=== PATIENT | female | born 1970 | race African-American/Black ===

== ENCOUNTER 2020-01-18 05:40 | Emergency (ER) | payer OTHER ==
[~2020-01-18] VITALS: Ht 167.6 cm; Wt 82.3 kg
[2020-01-18] MEDS ORDERED: IV NORMAL SALINE 1000ML BAG 1,000 ML IV ONE (06:30)
[2020-01-18] MEDS ORDERED: ACETAMINOPHEN 500 MG TABLET PO ONE (06:45)
[2020-01-18 07:00] LABS: CALCIUM 8.9 mg/dL (8.5-10.1); GFR 71.3; POTASSIUM 3.7 mmol/L (3.5-5.1)
[2020-01-18 07:04] LABS: BASO # 0.1 x10^3/uL (0.0-0.2); BASO % 1 % (0-3); EOS # 0.2 x10^3/uL (0.0-0.7); EOS % 3 % (0-3); HEMATOCRIT 42.3 % (36.0-47.0); HEMOGLOBIN 13.9 g/dL (12.0-15.5); LYMPH # 1.7 x10^3/uL (1.0-4.8); LYMPH % 35 % (24-48); MEAN CORPUSCULAR HEMOGLOBIN 27 pg (25-35); MEAN CORPUSCULAR HGB CONC 33 g/dL (31-37); MEAN CORPUSCULAR VOLUME 83 fL (79-100); MONO # 0.4 x10^3/uL (0.0-1.1); MONO % 9 % (0-9); NEUT # 2.5 x10^3/uL (1.8-7.7); NEUT % 52 % (31-73); PLATELET COUNT 257 x10^3/uL (140-400); RED BLOOD COUNT 5.11 x10^6/uL (3.50-5.40); RED CELL DISTRIBUTION WIDTH 14.8 % (11.5-14.5); WHITE BLOOD COUNT 4.8 x10^3/uL (4.0-11.0)
[2020-01-18 07:06] LABS: ALBUMIN 3.5 g/dL (3.4-5.0); ALBUMIN/GLOBULIN RATIO 0.8 (1.0-1.7); MAGNESIUM 1.9 mg/dL (1.8-2.4); TOTAL BILIRUBIN 0.4 mg/dL (0.2-1.0); TOTAL PROTEIN 7.8 g/dL (6.4-8.2)
[2020-01-18 07:09] LABS: PREG TEST PT QUAL NEGATIVE (NEG)
--- NOTE | 2020-01-18 07:14 | PHYS DOC ---
Past Medical History Past Medical History: Anxiety, Hypertension Additional Past Medical Histor: miscarriage (HERNANDO CORTES DO) Past Surgical History: Other Additional Past Surgical Histo: myomectomy x2 (HERNANDO CORTES DO) Smoking Status: Never Smoker Alcohol Use: None Drug Use: None (HERNANDO CORTES DO) General Adult EDM: Chief Complaint: HYPERTENSION HPI: HPI: Patient is a 49 year old female presents with report of concern of elevated blood pressure which has intermittently risen over the last several years. Reports today noted blood pressure was 159/101. Patient also reports some dyspnea with exertion and palpitations which also have become worse. Patient also reports "throbbing "headache. Patient reports concerned that she may need a "stress echo ". Reports she is concerned that she might have "kidney disease". Patient does report she has a history of anxiety. Denies trauma. Denies . Reports is currently on her menstrual period. (HERNANDO CORTES DO) Review of Systems: Review of Systems: Constitutional: Denies fever or chills Eyes: Denies redness or eye pain HENT: Denies nasal congestion or sore throat Respiratory: Denies cough; reports dyspnea with exertion Cardiovascular: Denies chest pain; reports palpitations GI: Denies abdominal pain, nausea, or vomiting : Denies dysuria or hematuria Musculoskeletal: Denies back pain or joint pain Integument: Denies rash or skin lesions Neurologic: Reports headache; denies focal weakness or sensory changes Complete systems were reviewed and found to be within normal limits, except as documented in this note. (HERNANDO COTRES DO) Heart Score: HEART Score for Chest Pain: HEART Score for Chest Pain Response (Comments) Value History Slighlty/Non-Suspicious 0 ECG Normal 0 Age >45 - < 65 1 Risk Factors 1 or 2 Risk Factors 1 Troponin < Normal Limit 0 Total 2 Risk Factors: Risk Factors: DM, Current or recent (<one month) smoker, HTN, HLP, family history of CAD, obesity. Risk Scores: Score 0 - 3: 2.5% MACE over next 6 weeks - Discharge Home Score 4 - 6: 20.3% MACE over next 6 weeks - Admit for Clinical Observation Score 7 - 10: 72.7% MACE over next 6 weeks - Early Invasive Strategies (HERNANDO CORTES DO) Current Medications: Current Medications Medications (Trade) Dose Ordered Sig/Janine Start Time Stop Time Status Last Admin Dose Admin Acetaminophen (Tylenol) 500 mg 1X ONCE 01/18/20 06:45 01/18/20 06:46 DC 01/18/20 06:47 500 MG Sodium Chloride 1,000 ml @ 1,000 mls/hr 1X ONCE 01/18/20 06:30 01/18/20 07:29 01/18/20 06:47 1,000 MLS/HR (HERNANDO CORTES DO) Allergies: Allergies: Allergies Coded Allergies Type Severity Reaction Last Updated Verified quinine Allergy Intermediate hives, itching 01/18/20 Yes (HERNANDO CORTES DO) Physical Exam: PE: Constitutional: Well developed, well nourished, anxious, non-toxic appearance HENT: Normocephalic, atraumatic Eyes: PERRL, EOMI, conjunctiva normal, no discharge Neck: Normal range of motion, no tenderness, supple Lungs & Thorax: No respiratory distress, equal chest rise and fall Abdomen: Soft, no tenderness Skin: Warm, dry, no erythema, no rash Extremities: No tenderness, ROM intact, no edema Neurologic: Alert and oriented X 3, normal motor function, normal sensory function, no focal deficits noted Psychologic: Affect anxious, judgment normal (HERNANDO CORTES DO) Current Patient Data: Labs: Laboratory Tests Test 01/18/20 06:15 Sodium Level 138 mmol/L (136-145) Potassium Level 3.7 mmol/L (3.5-5.1) Chloride Level 103 mmol/L (98-107) Carbon Dioxide Level 28 mmol/L (21-32) Anion Gap 7 (6-14) Blood Urea Nitrogen 13 mg/dL (7-20) Creatinine 1.0 mg/dL (0.6-1.0) Estimated GFR (Cockcroft-Gault) 71.3 BUN/Creatinine Ratio 13 (6-20) Glucose Level 96 mg/dL (70-99) Calcium Level 8.9 mg/dL (8.5-10.1) Magnesium Level 1.9 mg/dL (1.8-2.4) Total Bilirubin 0.4 mg/dL (0.2-1.0) Aspartate Amino Transferase (AST) 17 U/L (15-37) Alanine Aminotransferase (ALT) 20 U/L (14-59) Alkaline Phosphatase 40 U/L (46-116) L Troponin I Quantitative < 0.017 ng/mL (0.000-0.055) Total Protein 7.8 g/dL (6.4-8.2) Albumin 3.5 g/dL (3.4-5.0) Albumin/Globulin Ratio 0.8 (1.0-1.7) L Serum Test, Qualitative Negative (NEG) Laboratory Tests 01/18/20 06:15 Vital Signs: Vital Signs Date Time Temp Pulse Resp B/P (MAP) Pulse Ox O2 Delivery O2 Flow Rate FiO2 01/18/20 05:50 97.6 68 158/83 (108) 97 Room Air 97.6 (HERNANDO CORTES DO) EKG: EKG: @0630 NSR at 65bpm, NO ST elevation, QRS 66ms, QT/QTc 386/406ms (HERNANDO CORTES DO) Radiology/Procedures: Radiology/Procedures: PROCEDURE: CT HEAD WO CONTRAST CT HEAD WO CONTRAST History: Reason: headache, HTN / Spl. Instructions: / History: Comparison: None. Technique: Noncontrast CT imaging was performed of the head. Exposure: One or more of the following individualized dose reduction techniques were utilized for this examination: 1. Automated exposure control 2. Adjustment of the mA and/or kV according to patient size 3. Use of iterative reconstruction technique. Findings: No intracranial hemorrhage. No mass effect. No hydrocephalus. Extra-axial spaces are unremarkable. Imaged orbits are unremarkable. Imaged paranasal sinuses and mastoid air cells are clear. No acute calvarial fracture. Impression: 1. No acute intracranial abnormality. Electronically signed by: Juan C Vuong DO (01/18/2020 7:40 AM) [id number] (HERNANDO CORTES DO) Radiology/Procedures: EXAM: CT Pulmonary Angiogram INDICATION: Reason: dyspnea with exertion, elevated d-dimer / Spl. Instructions: IV OMNI 350 100 MLS / History: TECHNIQUE: Multi-detector row images were acquired from the thoracic inlet through the upper abdomen with the use of IV contrast. Sagittal and coronal images were acquired from the transaxial data. MIP images of the pulmonary arteries were obtained. All CT scans performed at this facility utilize dose optimization techniques as appropriate to the exam, including the following: Automated exposure control and adjustment of the mA and/or KV according to patient size (this includes techniques or standardized protocols for targeted exams where dose is indication/reason for exam). IV CONTRAST: Administered COMPARISON: None FINDINGS: PULMONARY ARTERIES: Filling defect in the anterior basal segment of the right lower lobe is present, consistent with pulmonary embolus. CARDIOVASCULAR: Persistent left SVC, with drainage into the coronary sinus. Normal heart size. No pericardial effusion.. Aorta is normal caliber. MEDIASTINUM & MIKAEL: No mediastinal or hilar mass. No mediastinal adenopathy. Borderline left hilar adenopathy measuring 9 mm. LUNGS: No pulmonary infiltrate, nodule, or other focal abnormality. PLEURAL SPACE: No pleural effusions or pneumothorax. OSSEOUS & SOFT TISSUE: Bones are unremarkable. The bilateral axillary lymph nodes are mildly prominent measuring up to 10 mm in short axis. ABDOMEN: The visualized portions of the upper abdomen are unremarkable. IMPRESSION: 1. Solitary small segmental pulmonary embolus in the anterior basal segment left lower lobe. 2. Persistent left SVC with drainage into the coronary sinus (INDIGO FAGAN MD) Course & Med Decision Making: Course & Med Decision Making Pertinent Labs and Imaging studies reviewed. (See chart for details) Patient presents with concern for elevated blood pressure up to 159/101. Patient reports has been ongoing for the past 1 to 2 years. Patient reports she is not currently on any blood pressure medication. Patient does report some associated palpitations, dyspnea with exertion, and current headache. Patient neurologically intact. Patient appears very anxious. EKG stable. Labs obtained and posted to chart. Troponin WNL. D-dimer elevated. CT head without acute process. CTA chest pending. Headache addressed with Tylenol. Signout given to Dr. Burch for further evaluation and final disposition. Discussed current findings and plan with patient and family, who acknowledge understanding and agreement. (HERNANDO CORTES DO) Dragon Disclaimer: Draggilberto Disclaimer: This electronic medical record was generated, in whole or in part, using a voice recognition dictation system. (HERNANDO CORTES DO) Departure Departure Impression: Primary Impression: Hypertension Qualified Codes: I10 - Essential (primary) hypertension Additional Impressions: Anxiety Headache Qualified Codes: R51.9 - Headache, unspecified Pulmonary embolism Disposition: 01 DC HOME SELF CARE/HOMELESS Condition: STABLE Referrals: BIANKA JEFFERS Jr, MD (PCP) Patient Instructions: Pulmonary Embolus Scripts Apixaban (ELIQUIS) 5 Mg Tablet 5 MG PO BID for 30 Days, #60 TAB 10 mg 2 times a day for 1 week and then 5 mg 2 times a day Prov: INDIGO FAGAN MD 01/18/20 Hydrochlorothiazide (HYDROCHLOROTHIAZIDE CAPSULE ) 12.5 Mg Capsule 12.5 MG PO DAILY for DIURETIC for 3 Days, #1 CAP 0 Refills Prov: INDIGO FAGAN MD 01/18/20 NIHSS Stroke Scale NIH Stroke Scale: NIH Stroke Scale Response (Comments) Value Level of Consciousness: 0 Alert/Responsive 0 LOC Questions: 0 Answers both correctly 0 LOC Commands: 0 Performs both tasks 0 Best Gaze: 0 Normal 0 Visual: 0 No visual loss 0 Facial Palsy: 0 Normal, symmetrical 0 Motor - Left Arm 0 No drift 0 Motor - Right Arm 0 No drift 0 Motor - Left Leg 0 No drift 0 Motor: Right Leg 0 No drift 0 Limb Ataxia: 0 Absent 0 Sensory: 0 No loss 0 Best Language: 0 Normal 0 Dysathria: 0 Normal 0 Extinction and Inattention: 0 Normal 0 Total 0 CORTES,HERNANDO Rowan DO Jan 18, 2020 07:14 BONNY BURCH MD Jan 18, 2020 08:32 INDIGO FAGAN MD Jan 18, 2020 08:49
--- NOTE | 2020-01-18 07:34 | EKG ---
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
--- NOTE | 2020-01-18 07:42 | RAD ---
CT HEAD WO CONTRAST History: Reason: headache, HTN / Spl. Instructions: / History: Comparison: None. Technique: Noncontrast CT imaging was performed of the head. Exposure: One or more of the following individualized dose reduction techniques were utilized for this examination: 1. Automated exposure control 2. Adjustment of the mA and/or kV according to patient size 3. Use of iterative reconstruction technique. Findings: No intracranial hemorrhage. No mass effect. No hydrocephalus. Extra-axial spaces are unremarkable. Imaged orbits are unremarkable. Imaged paranasal sinuses and mastoid air cells are clear. No acute calvarial fracture. Impression: 1. No acute intracranial abnormality. Electronically signed by: Juan C Vuong DO (01/18/2020 7:40 AM) [id number]
[2020-01-18 07:54] LABS: BILIRUBIN,URINE NEGATIVE (NEG); CLARITY,URINE CLEAR; COLOR,URINE YELLOW; NITRITE,URINE NEGATIVE (NEG); PH,URINE 5.5 (<5.0-8.0); PROTEIN,URINE NEGATIVE (NEG-TRACE); UROBILINOGEN,URINE 0.2 mg/dL (0.2 mg/dL)
[2020-01-18] MEDS ORDERED: IOHEXOL 350 MG/ML 100 ML VIAL. IV ONE (08:00)
[2020-01-18] MEDS ORDERED: CONTRAST GIVEN. MC PRN (08:00)
--- NOTE | 2020-01-18 08:42 | RAD ---
EXAM: CT Pulmonary Angiogram INDICATION: Reason: dyspnea with exertion, elevated d-dimer / Spl. Instructions: IV OMNI 350 100 MLS / History: TECHNIQUE: Multi-detector row images were acquired from the thoracic inlet through the upper abdomen with the use of IV contrast. Sagittal and coronal images were acquired from the transaxial data. MIP images of the pulmonary arteries were obtained. All CT scans performed at this facility utilize dose optimization techniques as appropriate to the exam, including the following: Automated exposure control and adjustment of the mA and/or KV according to patient size (this includes techniques or standardized protocols for targeted exams where dose is indication/reason for exam). IV CONTRAST: Administered COMPARISON: None FINDINGS: PULMONARY ARTERIES: Filling defect in the anterior basal segment of the right lower lobe is present, consistent with pulmonary embolus. CARDIOVASCULAR: Persistent left SVC, with drainage into the coronary sinus. Normal heart size. No pericardial effusion.. Aorta is normal caliber. MEDIASTINUM & MIKAEL: No mediastinal or hilar mass. No mediastinal adenopathy. Borderline left hilar adenopathy measuring 9 mm. LUNGS: No pulmonary infiltrate, nodule, or other focal abnormality. PLEURAL SPACE: No pleural effusions or pneumothorax. OSSEOUS & SOFT TISSUE: Bones are unremarkable. The bilateral axillary lymph nodes are mildly prominent measuring up to 10 mm in short axis. ABDOMEN: The visualized portions of the upper abdomen are unremarkable. IMPRESSION: 1. Solitary small segmental pulmonary embolus in the anterior basal segment left lower lobe. 2. Persistent left SVC with drainage into the coronary sinus FOR INTERNAL CODING PURPOSES Critical result: Findings discussed with Dr. Leo at 01/18/2020 8:32 AM. RESULT CODE: (C) Electronically signed by: Jasper Diego MD (01/18/2020 8:39 AM) [id number]
[2020-01-18 08:43] LABS: BACTERIA,URINE 0 /HPF (0-FEW); WBC,URINE 0 /HPF (0-4)
[2020-01-18] MEDS ORDERED: APIX5TAB PO (09:06)
[2020-01-18] MEDS ORDERED: HYDR12.575 PO (09:06)
[2020-01-18 09:20] VITALS: BP 132/78
== END 2020-01-18 09:25 | disposition home or self-care (01) ==
LOC: ER 05:40
DX: I10 Essential (primary) hypertension (principal); F41.9 Anxiety disorder, unspecified; R51.9 Headache, unspecified; I26.99 Other pulmonary embolism without acute cor pulmonale; Z88.8 Allergy status to other drugs, medicaments and biological substances
CPT/HCPCS: 36415; 70450; 71275; 80053; 81001; 82553; 83735; 84484; 84703; 85025; 85379; 93005; 96360; 99285; J7030

== ENCOUNTER 2021-01-28 04:05 | Emergency (ER) | payer BC, OTHER ==
[~2021-01-28] VITALS: Ht 170.2 cm; Wt 75.9 kg
[~2021-01-28 04:05] MED LIST: APIX5TAB PO; HYDR12.575 PO
--- NOTE | 2021-01-28 04:54 | ED.ADGEN ---
Past Medical History Past Medical History: Anxiety, Hypertension Additional Past Medical Histor: miscarriage, pe Past Surgical History: Other Additional Past Surgical Histo: myomectomy x2 Smoking Status: Never Smoker Alcohol Use: None Drug Use: None General Adult EDM: Chief Complaint: CHEST PAIN HPI: HPI: Patient is a 50 year old female coming in for substernal chest pain that radiates to her thoracic back. This is with about 2 days and describes as burning. Sometimes makes it difficult to take a deep breath otherwise not short of breath or coughing. Denies any fevers, robinson pain, nausea or vomiting. Denies any recent injury or heavy lifting. Patient has a history of hypertension and pulmonary embolism diagnosed 1 year ago and has stopped taking her Eliquis and hydrochlorothiazide. Patient states she has been taking Tylenol for pain. Has had her Covid vaccines. Review of Systems: Review of Systems: All other systems within normal limits except for as noted in the HPI Current Medications: Current Medications Medications (Trade) Dose Ordered Sig/Janine Start Time Stop Time Status Last Admin Dose Admin Fentanyl Citrate (Fentanyl 2ml Vial) 75 mcg 1X ONCE 01/28/21 05:15 01/28/21 05:16 DC 01/28/21 05:26 75 MCG Info (CONTRAST GIVEN -- Rx MONITORING) 1 each PRN DAILY PRN 01/28/21 06:00 01/30/21 05:59 Iohexol (Omnipaque 350 Mg/ml) 100 ml 1X ONCE 01/28/21 06:00 01/28/21 06:01 DC 01/28/21 06:18 100 ML Allergies: Allergies: Allergies Coded Allergies Type Severity Reaction Last Updated Verified quinine Allergy Intermediate hives, itching 01/18/20 Yes Physical Exam: PE: Constitutional: Well developed, well nourished, no acute distress, non-toxic appearance. [] HENT: Normocephalic, atraumatic, bilateral external ears normal, nose normal. [] Eyes: PERRLA, conjunctiva normal, no discharge. [] Neck: No rigidity, supple, no stridor. No tenderness [] Cardiovascular: Regular rate and rhythm, brisk cap refill [] Lungs & Thorax: Non labored symmetric respirations, no tachypnea or respiratory distress, lungs clear to auscultation [] Abdomen: Soft, nondistended, epigastric tender. Skin: Warm, dry, no erythema, no rash. [] Back: Unremarkable, no step-off deformity, diffuse tenderness in thoracic area Extremities: No deformities, range of motion grossly intact, no lower extremity edema [] Neurologic: Alert and oriented X 3, no focal deficits noted. [] Psychologic: Affect normal, judgment normal, mood normal. [] Constitutional: Well developed, well nourished, no acute distress HENT: Normocephalic, atraumatic Eyes: Conjunctiva normal, no discharge Neck: Normal range of motion, supple Lungs & Thorax: No respiratory distress, equal chest rise and fall, tenderness to mid sternum which is reproducible on palpation Back: No midline tenderness, bilateral upper thoracic paraspinal tenderness on palpation Skin: Warm, dry, no erythema, no rash Extremities: No tenderness, ROM intact, no edema Neurologic: Alert and oriented X 3, no focal deficits noted Psychologic: Affect anxious, judgment normal Current Patient Data: Labs: Laboratory Tests Test 01/28/21 04:35 01/28/21 05:24 White Blood Count 5.2 x10^3/uL (4.0-11.0) Red Blood Count 5.13 x10^6/uL (3.50-5.40) Hemoglobin 14.0 g/dL (12.0-15.5) Hematocrit 42.4 % (36.0-47.0) Mean Corpuscular Volume 83 fL (79-100) Mean Corpuscular Hemoglobin 27 pg (25-35) Mean Corpuscular Hemoglobin Concent 33 g/dL (31-37) Red Cell Distribution Width 14.6 % (11.5-14.5) H Platelet Count 263 x10^3/uL (140-400) Neutrophils (%) (Auto) 48 % (31-73) Lymphocytes (%) (Auto) 39 % (24-48) Monocytes (%) (Auto) 8 % (0-9) Eosinophils (%) (Auto) 4 % (0-3) H Basophils (%) (Auto) 1 % (0-3) Neutrophils # (Auto) 2.5 x10^3/uL (1.8-7.7) Lymphocytes # (Auto) 2.0 x10^3/uL (1.0-4.8) Monocytes # (Auto) 0.4 x10^3/uL (0.0-1.1) Eosinophils # (Auto) 0.2 x10^3/uL (0.0-0.7) Basophils # (Auto) 0.1 x10^3/uL (0.0-0.2) Sodium Level 140 mmol/L (136-145) Potassium Level 3.6 mmol/L (3.5-5.1) Chloride Level 102 mmol/L (98-107) Carbon Dioxide Level 29 mmol/L (21-32) Anion Gap 9 (6-14) Blood Urea Nitrogen 16 mg/dL (7-20) Creatinine 0.9 mg/dL (0.6-1.0) Estimated GFR (Cockcroft-Gault) 80.2 BUN/Creatinine Ratio 18 (6-20) Glucose Level 91 mg/dL (70-99) Calcium Level 8.7 mg/dL (8.5-10.1) Magnesium Level 2.1 mg/dL (1.8-2.4) Total Bilirubin 0.5 mg/dL (0.2-1.0) Aspartate Amino Transferase (AST) 15 U/L (15-37) Alanine Aminotransferase (ALT) 22 U/L (14-59) Alkaline Phosphatase 47 U/L (46-116) Troponin I High Sensitivity 5 ng/L (4-50) GV-Bvc-I-Type Natriuretic Peptide 105 pg/mL (0-124) Total Protein 7.3 g/dL (6.4-8.2) Albumin 3.5 g/dL (3.4-5.0) Albumin/Globulin Ratio 0.9 (1.0-1.7) L Lipase 75 U/L (73-393) D-Dimer (Linh) < 0.27 ug/mlFEU Laboratory Tests 01/28/21 04:35 Laboratory Tests 01/28/21 04:35 Vital Signs: Vital Signs Date Time Temp Pulse Resp B/P (MAP) Pulse Ox O2 Delivery O2 Flow Rate FiO2 01/28/21 07:03 84 20 155/99 (117) 100 Room Air 01/28/21 04:20 97.4 97.4 EKG: EKG: Sinus rhythm, heart rate 70 beats minute, normal axis, no ST elevation or depression, no ectopy. No STEMI [] Heart Score: C/O Chest Pain: Yes HEART Score for Chest Pain: HEART Score for Chest Pain Response (Comments) Value History Slighlty/Non-Suspicious 0 ECG Normal 0 Age >45 - < 65 1 Risk Factors 1 or 2 Risk Factors 1 Troponin < Normal Limit 0 Total 2 Risk Factors: Risk Factors: DM, Current or recent (<one month) smoker, HTN, HLP, family history of CAD, obesity. Risk Scores: Score 0 - 3: 2.5% MACE over next 6 weeks - Discharge Home Score 4 - 6: 20.3% MACE over next 6 weeks - Admit for Clinical Observation Score 7 - 10: 72.7% MACE over next 6 weeks - Early Invasive Strategies Radiology/Procedures: Radiology/Procedures: PROCEDURE: CT ANGIOGRAPHY CHEST INDICATION: Reason: chest pain, radiating to back, h/o pe, OMNI 350 100 ML IV / Spl. Instructions: / History: COMPARISON: December 2019 TECHNIQUE: Axial CT images obtained through the chest. Intravenous contrast utilized. Angiogram 3D images processed per protocol. One or more of the following individualized dose reduction techniques were utilized for this examination: 1. Automated exposure control; 2. Adjustment of the mA and/or kV according to patient size; 3. Use of iterative reconstruction technique. FINDINGS: No evidence of pneumothorax. There is some linear opacities at the lower lungs bilaterally. Given the location this would commonly be secondary to atelectasis. There is some prominent lymph nodes within the mediastinum similar to prior. Probable diverticulum posterior to the stomach at partially visualized upper abdomen. Enlarged lymph nodes in axilla bilaterally. Example these measure up to about 11 mm short axis. Also seen on prior. Degenerative changes spine. Motion artifact obscures portions of ascending thoracic aorta. No aneurysm or dissection flap in the visualized portions of the thoracic aorta. Fullness of the soft tissues of the upper abdomen near region of pancreas and stomach. The patient's previously identified small left basilar pulmonary embolus appears decreased from prior. There is motion within the area therefore difficult to tell if it is completely resolved or if there is a tiny amount of residual thrombus. No embolus in the more central pulmonary arteries. Mild wedging of T12 vertebral body. IMPRESSION: The previously identified small embolus at the left lower lung appears decreased from prior examination. There is motion through the area with a small focus of low density within a peripheral vessel. This could be from a tiny amount of residual thrombus or scarring within the area but motion limits evaluation. There is no extension more proximally into the pulmonary arteries. Repeat demonstration of prominent lymph nodes within the axilla bilaterally of unknown etiology. At the partially visualized upper abdomen there is some fullness at the pancreatic and stomach region. This could be secondary to unopacified loops of bowel in the area but cannot assess for lymphadenopathy within the area or a mass secondary to this limitation and if the patient has symptoms a follow-up CT of the abdomen with intravenous and oral contrast could better assess. Electronically signed by: Uriel Hernandez MD (01/28/2021 7:50 AM) DESKTOP- [id number] Course & Med Decision Making: Course & Med Decision Making Pertinent Labs and Imaging studies reviewed. (See chart for details) 0600- Sign out received from Dr. Fagan for patient with atypical chest pain. Patient reports concern the pain is secondary to her "large breasts ". Patient does have a history of prior PE. EKG stable. Labs reviewed. Troponin within normal limits. HEART score 2. CTA pending at time of signout. CTA chest without significant signs of PE. Prior PE appears improved versus resolved secondary to some artifact in the area. Further signs of PE not demonstrated. Sats stable throughout ER stay. Patient without calf tenderness or swelling. Patient becomes tearful when discussing the discomfort that her "breasts " caused. Cannot fully exclude esophageal etiology as well. Patient does appear safe for discharge home. Patient requesting information regarding breast reduction along with referral. Patient stable for discharge with outpatient follow-up with PCP/surgeon/GI. Surgeon and GI referrals provided. Discussed findings and plan with patient and spouse, who acknowledges understanding and agreement. Natalia Disclaimer: Natalia Disclaimer: This electronic medical record was generated, in whole or in part, using a voice recognition dictation system. Departure Departure Impression: Primary Impression: Atypical chest pain Additional Impression: Back pain Disposition: HOME / SELF CARE / HOMELESS Condition: STABLE Referrals: BIANKA JEFFERS Jr, MD (PCP) HIRAL ARRIAGA MD, RAVEN C MD PROPECK, SCOTT S MD Patient Instructions: Back Pain, Adult, [id number], Breast Reduction, Chest Pain (Nonspecific), [id number], Chest Wall Pain, [id number], Gastritis, Adult, [id number] Additional Instructions: May also Dr. Cady Guerin call for an appointment with Plastic Surgery for further assessment and consultation regarding breast reduction surgery. Scripts Famotidine (PEPCID) 20 Mg Tablet 20 MG PO BID, #30 TAB Prov: HERNANDO CORTES DO 01/28/21 Orphenadrine Citrate (ORPHENADRINE CITRATE) 100 Mg Tablet.er 100 MG PO BID PRN for MUSCLE PAIN, #14 TAB Prov: HERNANDO CORTES DO 01/28/21 Problem Qualifiers Additional Impression: Back pain Back pain location: thoracic back pain Chronicity: acute Back pain laterality: bilateral Qualified Codes: M54.6 - Pain in thoracic spine INDIGO FAGAN MD Jan 28, 2021 04:54 HERNANDO CORTES DO Jan 28, 2021 08:24
[2021-01-28] MEDS ORDERED: fentaNYL PF VIAL 100 MCG/2 ML VIAL IVP ONE (05:15)
[2021-01-28 05:21] LABS: BASO # 0.1 x10^3/uL (0.0-0.2); BASO % 1 % (0-3); EOS # 0.2 x10^3/uL (0.0-0.7); EOS % 4 % (0-3); HEMATOCRIT 42.4 % (36.0-47.0); LYMPH % 39 % (24-48); MEAN CORPUSCULAR HEMOGLOBIN 27 pg (25-35); MEAN CORPUSCULAR HGB CONC 33 g/dL (31-37); MEAN CORPUSCULAR VOLUME 83 fL (79-100); MONO # 0.4 x10^3/uL (0.0-1.1); MONO % 8 % (0-9); NEUT # 2.5 x10^3/uL (1.8-7.7); NEUT % 48 % (31-73); PLATELET COUNT 263 x10^3/uL (140-400); RED BLOOD COUNT 5.13 x10^6/uL (3.50-5.40); RED CELL DISTRIBUTION WIDTH 14.6 % (11.5-14.5); WHITE BLOOD COUNT 5.2 x10^3/uL (4.0-11.0)
[2021-01-28 05:33] LABS: CALCIUM 8.7 mg/dL (8.5-10.1); CREATININE 0.9 mg/dL (0.6-1.0); GFR 80.2; POTASSIUM 3.6 mmol/L (3.5-5.1)
[2021-01-28 05:42] LABS: ALBUMIN 3.5 g/dL (3.4-5.0); ALBUMIN/GLOBULIN RATIO 0.9 (1.0-1.7); MAGNESIUM 2.1 mg/dL (1.8-2.4); TOTAL BILIRUBIN 0.5 mg/dL (0.2-1.0); TOTAL PROTEIN 7.3 g/dL (6.4-8.2)
[2021-01-28] MEDS ORDERED: CONTRAST GIVEN. MC PRN (06:00)
[2021-01-28] MEDS ORDERED: IOHEXOL 350 MG/ML 100 ML VIAL. IV ONE (06:00)
--- NOTE | 2021-01-28 07:53 | RAD ---
INDICATION: Reason: chest pain, radiating to back, h/o pe, OMNI 350 100 ML IV / Spl. Instructions: / History: COMPARISON: December 2019 TECHNIQUE: Axial CT images obtained through the chest. Intravenous contrast utilized. Angiogram 3D images proce ssed per protocol. One or more of the following individualized dose reduction techniques were utilized for this examinat ion: 1. Automated exposure control; 2. Adjustment of the mA and/or kV according to patient size; 3 . Use of iterative reconstruction technique. FINDINGS: No evidence of pneumothorax. There is some linear opacities at the lower lungs bilaterally. Given the location this would commonly be secondary to atelectasis. There is some prominent lymph nodes within the mediastinum similar to prior. Probable diverticulum po sterior to the stomach at partially visualized upper abdomen. Enlarged lymph nodes in axilla bilatera lly. Example these measure up to about 11 mm short axis. Also seen on prior. Degenerative changes spine. Motion artifact obscures portions of ascending thoracic aorta. No aneurysm or dissection flap in the visualized portions of the thoracic aorta. Fullness of the soft tissues of the upper abdomen near region of pancreas and stomach. The patient's previously identified small left basilar pulmonary embolus appears decreased from prior . There is motion within the area therefore difficult to tell if it is completely resolved or if ther e is a tiny amount of residual thrombus. No embolus in the more central pulmonary arteries. Mild wedging of T12 vertebral body. IMPRESSION: The previously identified small embolus at the left lower lung appears decreased from prior examinati on. There is motion through the area with a small focus of low density within a peripheral vessel. Th is could be from a tiny amount of residual thrombus or scarring within the area but motion limits jaswinder luation. There is no extension more proximally into the pulmonary arteries. Repeat demonstration of prominent lymph nodes within the axilla bilaterally of unknown etiology. At the partially visualized upper abdomen there is some fullness at the pancreatic and stomach region . This could be secondary to unopacified loops of bowel in the area but cannot assess for lymphadenop athy within the area or a mass secondary to this limitation and if the patient has symptoms a follow- up CT of the abdomen with intravenous and oral contrast could better assess. Electronically signed by: Uriel Hernandez MD (01/28/2021 7:50 AM) [id number]
[2021-01-28 08:03] VITALS: BP 144/85
[2021-01-28] MEDS ORDERED: ORPH100T PO (08:20)
[2021-01-28] MEDS ORDERED: FAMO-63 PO (08:20)
== END 2021-01-28 08:30 | disposition home or self-care (01) ==
LOC: ER 04:05
DX: R07.2 Precordial pain (principal); M54.6 Pain in thoracic spine; I10 Essential (primary) hypertension; Z88.8 Allergy status to other drugs, medicaments and biological substances
CPT/HCPCS: 36415; 71275; 80053; 83690; 83735; 83880; 84484; 85025; 85379; 96374; 99285; J3010; Q9967